=== PATIENT | male | born 1965 | race Caucasian/White ===

== ENCOUNTER 2017-04-19 10:03 | Outpatient (CLI) | payer OTHER ==
[2013-10-09 14:03] VITALS: BP 131/80
[2017-04-19 10:23] LABS: APPEARANCE,URINE Clear (CLEAR); COLOR,URINE Yellow (YELLOW); OCCULT BLOOD,URINE Negative (NEGATIVE); PH URINE 5.5 (5.0 - 8.0); UROBILINOGEN URINE 0.2 Eu (0.2-1.0)
[2017-04-19 10:28] LABS: BASOPHILS % 0.7 (0.0-1.5); EOSINOPHILS % 5.7 % (0.0-6.8); MEAN CORPUSCULAR HEMOGLOBIN 32.5 pg (28.0-34.0); MEAN CORPUSCULAR VOLUME 100.5 fl (80.0-100.0); MONOCYTES % 5.1 % (0.0-11.0); NEUTROPHILS # 1.6 # k/uL (1.4-7.7)
[2017-04-19 11:03] LABS: eGFR (African) > 60; eGFR (Non-African) > 60
== END 2017-04-19 10:04 ==
LOC: LAB 10:03
DX: I10 Essential (primary) hypertension (principal); E78.5 Hyperlipidemia, unspecified; Z12.5 Encounter for screening for malignant neoplasm of prostate; D55.9 Anemia due to enzyme disorder, unspecified; E16.2 Hypoglycemia, unspecified; N39.0 Urinary tract infection, site not specified
CPT/HCPCS: 36415; 80053; 80061; 81002; 82306; 83036; 84153; 84436; 84439; 84443; 85025; 85651; 86141

== ENCOUNTER 2017-12-21 14:21 | Outpatient (CLI) | payer OTHER ==
[2013-10-09 14:03] VITALS: BP 131/80
[2017-12-21 14:42] LABS: BASOPHILS % 0.7 (0.0-1.5); EOSINOPHILS % 4.6 % (0.0-6.8); MEAN CORPUSCULAR HEMOGLOBIN 33.6 pg (28.0-34.0); MEAN CORPUSCULAR VOLUME 103.4 fl (80.0-100.0); MONOCYTES % 5.1 % (0.0-11.0); NEUTROPHILS # 1.8 # k/uL (1.4-7.7)
[2017-12-21 15:18] LABS: eGFR (African) > 60; eGFR (Non-African) > 60
== END 2017-12-21 14:26 ==
LOC: LAB 14:21
DX: M25.461 Effusion, right knee (principal)
CPT/HCPCS: 36415; 80053; 84443; 84550; 85025; 85651; 86141

== ENCOUNTER 2019-04-28 13:22 | Outpatient (CLI) | payer OTHER ==
[2013-10-09 14:03] VITALS: BP 131/80
[2019-04-28 13:50] LABS: BASOPHILS % 0.5 % (0.0-1.5); NEUTROPHILS # 1.4 # k/uL (1.4-7.7)
[2019-04-28 13:53] LABS: APPEARANCE,URINE CLEAR (CLEAR); COLOR,URINE YELLOW (YELLOW); OCCULT BLOOD,URINE NEGATIVE (NEGATIVE); UROBILINOGEN URINE 0.2 Eu (0.2-1.0)
[2019-04-28 15:13] LABS: eGFR (Non-African) > 60
[2019-04-28 15:14] LABS: HDL 44 mg/dL (>40)
== END 2019-04-28 13:27 ==
LOC: LAB 13:22
DX: I10 Essential (primary) hypertension (principal); E78.5 Hyperlipidemia, unspecified; E16.2 Hypoglycemia, unspecified
CPT/HCPCS: 36415; 80053; 80061; 81002; 83036; 84403; 84436; 84439; 84443; 85025; 85651; 86140